=== PATIENT | male | born 1970 | race American Indian/Alaskan Native ===

== ENCOUNTER 2022-12-07 14:21 | Emergency (ER) | payer SELFPAY ==
[2022-12-07 15:09] LABS: Hematocrit 42.1 % (39.6-49.0); Lymphocytes % 18.4 % (15.3-44.8); MPV 8.5 fL (7.6-11.3); RBC Red Blood Cell Count 4.73 M/uL (4.33-5.43)
[2022-12-07] MEDS ORDERED: AMLODIPINE 5 MG TAB ONE (15:19)
[2022-12-07 15:32] LABS: Potassium 3.3 mEq/L (3.5-5.1); Troponin High Sensitivity 15.8 pg/mL (<58.9)
--- NOTE | 2022-12-07 16:29 | RAD REPORT ---
EXAM DESCRIPTION: Raeann Single View12/07/2022 2:58 pm CLINICAL HISTORY: Chest pain COMPARISON: none FINDINGS: The lungs appear clear of acute infiltrate. The heart is mildly enlarged IMPRESSION: No acute abnormalities displayed
--- NOTE | 2022-12-07 16:29 | RAD REPORT ---
EXAM DESCRIPTION: CT - Angio Aorta For Dissection - 12/07/2022 3:45 pm CLINICAL HISTORY: . Chest and abd pain COMPARISON: None TECHNIQUE: Computed tomography angiography of the chest, abdomen pelvis were obtained. 100 cc Isovue 370 was administered intravenously. Coronal and sagittal reconstruction were performed. MIP 3D reconstruction was performed All CT scans are performed using dose optimization technique as appropriate and may include automated exposure control or mA/KV adjustment according to patient size. FINDINGS: An aortic dissection is not seen. An aortic aneurysm is not displayed. The celiac, SMA and QUANG are patent . A lung consolidation is not present. A pericardial effusion is not seen. A pleural effusion is not no darlin. Fatty liver. Bladder is distended. The spleen, pancreas, adrenals and kidneys are unremarkable There no evidence diverticulitis. IMPRESSION: Negative for an aortic dissection.
--- NOTE | 2022-12-07 16:53 | ER ---
Nurse's Notes [facility] Name: Alvaro Cnanon Age: 52 yrs Sex: Male : 1970 Arrival Date: 12/07/2022 Time: 14:21 Bed 17 Private MD: Diagnosis: Chest pain, unspecified;Essential (primary) hypertension Presentation: 12/07 14:20 Chief complaint: EMS states: WEAKNESS, CP, DIFFICULTY BREATHING STARTED 45 MIN AGO. db 14:20 Coronavirus screen: Vaccine status: Patient reports receiving the 2nd dose of the covid db vaccine. Client denies travel out of the [place] in the last 14 days. At this time, the client does not indicate any symptoms associated with coronavirus-19. Ebola Screen: Patient negative for fever greater than or equal to 101.5 degrees Fahrenheit, and additional compatible Ebola Virus Disease symptoms Patient denies exposure to infectious person. Patient denies travel to an Ebola-affected area in the 21 days before illness onset. No symptoms or risks identified at this time. Initial Sepsis Screen: Does the patient meet any 2 criteria? No. Patient's initial sepsis screen is negative. Does the patient have a suspected source of infection? No. Patient's initial sepsis screen is negative. Risk Assessment: Do you want to hurt yourself or someone else? Patient reports no desire to harm self or others. Onset of symptoms was December 07, 2022 at 13:30. Care prior to arrival: Medication(s) given: ASA, 81 mg, x 4, Nitroglycerin, 0.4 mg SL x 1, IV initiated. 20 GA, in the left forearm, Glucose check: 117. 14:20 Method Of Arrival: EMS: [facility] db 14:20 Acuity: DONALD 2 db Triage Assessment: 14:33 General: Appears in no apparent distress. comfortable, Behavior is calm, cooperative. db Pain: Complains of pain in chest Pain radiates to back. Neuro: Level of Consciousness is awake, alert, obeys commands, Oriented to person, place, time, situation, Speech is normal. Cardiovascular: Reports chest pain, shortness of breath, Capillary refill < 3 seconds Patient's skin is warm and dry. Chest pain. Respiratory: Airway is patent Respiratory effort is even, unlabored, Respiratory pattern is regular, symmetrical. Historical: - Allergies: 14:33 No Known Allergies; db - PMHx: 14:33 Hypertensive disorder; db - Immunization history:: Adult Immunizations unknown, Client reports receiving the 2nd dose of the Covid vaccine. - Social history:: Smoking status: Patient denies any tobacco usage or history of. - Family history:: not pertinent. - Hospitalizations: : No recent hospitalization is reported. Screenin:35 [facility] ED Fall Risk Assessment (Adult) History of falling in the last 3 months, db including since admission No falls in past 3 months (0 pts) Confusion or Disorientation No (0 pts) Intoxicated or Sedated No (0 pts) Impaired Gait No (0 pts) Mobility Assist Device Used No (0 pt) Altered Elimination No (0 pt) Score/Fall Risk Level 0 - 2 = Low Risk Oriented to surroundings, Maintained a safe environment. Abuse screen: Denies threats or abuse. Denies injuries from another. Nutritional screening: No deficits noted. Tuberculosis screening: No symptoms or risk factors identified. Assessment: 14:34 Reassessment: SEE TRIAGE FOR INITIAL ASSESSMENT. Pain: Pain began suddenly, 1 hour ago. db 16:30 Reassessment: Patient appears in no apparent distress at this time. Patient and/or db family updated on plan of care and expected duration. Pain level reassessed. Patient is alert, oriented x 3, equal unlabored respirations, skin warm/dry/pink. Patient states feeling better. Patient states symptoms have improved. 17:10 Reassessment: Patient appears in no apparent distress at this time. Patient and/or db family updated on plan of care and expected duration. Pain level reassessed. Patient is alert, oriented x 3, equal unlabored respirations, skin warm/dry/pink. Patient states feeling better. Pain: Complains of pain in chest. Vital Signs: 14:20 BP 149 / 91; Pulse 71; Resp 16; Temp 98.6(O); Pulse Ox 99% on R/A; Weight 72.12 kg; db Height 5 ft. 7 in. ; 14:30 BP 153 / 99; Pulse 73; Resp 16; Pulse Ox 98% on R/A; db 15:00 BP 147 / 89; Pulse 68; Resp 16; Pulse Ox 99% on R/A; db 16:00 BP 154 / 80; Pulse 72; Resp 16; Pulse Ox 99% on R/A; db 17:00 BP 144 / 93; Pulse 78; Resp 16; Pulse Ox 97% on R/A; db 14:20 Body Mass Index 24.90 (72.12 kg, 170.18 cm) db Vitals: 14:30 Cardiac Rhythm Assessment Regular Sinus rhythm. db ED Course: 14:27 Patient arrived in ED. db 14:33 Triage completed. db 14:34 Arm band placed on Patient placed in an exam room. db 14:35 Maintain EMS IV. Dressing intact. Good blood return noted. Site clean \T\ dry. Gauge \T\ db site: 20 G LFA. 14:36 Brett Lugo MD is Attending Physician. rn 15:00 XRAY Chest (1 view) In Process Unspecified. EDMS 15:00 Basic Metabolic Panel Sent. cm10 15:00 CBC with Diff Sent. cm10 15:00 NT PRO-BNP Sent. cm10 15:00 Troponin HS Sent. cm10 15:00 Initial lab(s) drawn, by me, sent to lab. Inserted saline lock: 20 gauge in right cm10 forearm, using aseptic technique. Blood collected. 15:03 Varsha Carreon, RN is Primary Nurse. db 15:46 CT Aorta for Dissection In Process Unspecified. EDMS 16:28 Patient has correct armband on for positive identification. Bed in low position. Call db light in reach. Side rails up X2. Client placed on continuous cardiac and pulse oximetry monitoring. NIBP monitoring applied. 16:28 Repeat lab(s) drawn. by me, sent to lab. db 17:10 Provided Education on: DISCHARGE. db 17:10 No provider procedures requiring assistance completed. IV discontinued, intact, db bleeding controlled, No redness/swelling at site. Patient maintains SpO2 saturation greater than 95% on room air. Administered Medications: 15:12 Drug: amLODIPine PO 5 mg Route: PO; db 17:11 Follow up: Response: No adverse reaction db Medication: 17:10 VIS not applicable for this client. db Outcome: 16:52 Discharge ordered by . rn 17:10 Discharged to home ambulatory, with family. db 17:10 Condition: stable 17:10 Discharge instructions given to patient, Instructed on discharge instructions, follow up and referral plans. 17:11 Patient left the ED. db Signatures: Dispatcher [employer] EDMS Brett Lugo MD MD rn Benton, Danielle, RN RN db Martinez Lori, RN RN cm10
--- NOTE | 2022-12-07 16:53 | EDPHYS ---
Physician Documentation [facility] Name: Alvaro Cannon Age: 52 yrs Sex: Male : 1970 Arrival Date: 12/07/2022 Time: 14:21 Bed 17 Private MD: ED Physician Brett Lugo HPI: 12/07 14:43 This 52 yrs old Male presents to ER via EMS with complaints of Chest Pain. rn 14:43 The patient or guardian reports chest pain that is located primarily in the chest rn diffusely. Onset: just prior to arrival. The pain does not radiate. Associated signs and symptoms: Pertinent positives: dizziness, Pertinent negatives: abdominal pain, shortness of breath, syncope, vomiting. The chest pain is described as a heaviness. Duration: The patient or guardian reports a single episode, that is still ongoing. Modifying factors: The symptoms are alleviated by nothing. the symptoms are aggravated by emotionally stressful situations. Severity of pain: At its worst the pain was moderate in the emergency department the pain has improved. The patient has not experienced similar symptoms in the past. The patient has not recently seen a physician. Pt reports chest heaviness and dizziness, began quickly while talking to his family member, reports was under a lot of stress, now feels better, states got aspirin by EMS but denies getting nitroglycerin. NO famhx of cardiac problems, and multiple family members lived to late 90s age. No trauma. No fever. No cough. NO abd pain. No vomiting. Reports feels much better but still feels a little chest heaviness. . Historical: - Allergies: 14:33 No Known Allergies; db - PMHx: 14:33 Hypertensive disorder; db - Immunization history:: Adult Immunizations unknown, Client reports receiving the 2nd dose of the Covid vaccine. - Social history:: Smoking status: Patient denies any tobacco usage or history of. - Family history:: not pertinent. - Hospitalizations: : No recent hospitalization is reported. ROS: 14:43 Constitutional: Negative for fever, chills, and weight loss, Eyes: Negative for injury, rn pain, redness, and discharge, Neck: Negative for injury, pain, and swelling, Cardiovascular: Negative for edema Respiratory: Negative for shortness of breath, cough, wheezing, and pleuritic chest pain, Abdomen/GI: Negative for abdominal pain, nausea, vomiting, diarrhea, and constipation, MS/Extremity: Negative for injury and deformity, Skin: Negative for injury, rash, and discoloration, Neuro: Negative for headache, weakness, numbness, tingling, and seizure. Exam: 14:43 Constitutional: This is a well developed, well nourished patient who is awake, alert, rn and in no acute distress. Talking on phone, appears comfortable. Head/Face: Normocephalic, atraumatic. Cardiovascular: Regular rate and rhythm. No pulse deficits. Respiratory: No increased work of breathing, no retractions or nasal flaring. Abdomen/GI: Soft, non-tender Skin: Warm, dry with normal turgor. Normal color with no rashes, no lesions, and no evidence of cellulitis. MS/ Extremity: Pulses equal, no cyanosis. Neurovascular intact. Full, normal range of motion. LLE greater circumference greater than RLE (patient states that way since childhood) Neuro: Awake and alert, GCS 15 15:03 ECG was reviewed by the Attending Physician. rn Vital Signs: 14:20 BP 149 / 91; Pulse 71; Resp 16; Temp 98.6(O); Pulse Ox 99% on R/A; Weight 72.12 kg; db Height 5 ft. 7 in. ; 14:30 BP 153 / 99; Pulse 73; Resp 16; Pulse Ox 98% on R/A; db 15:00 BP 147 / 89; Pulse 68; Resp 16; Pulse Ox 99% on R/A; db 16:00 BP 154 / 80; Pulse 72; Resp 16; Pulse Ox 99% on R/A; db 17:00 BP 144 / 93; Pulse 78; Resp 16; Pulse Ox 97% on R/A; db 14:20 Body Mass Index 24.90 (72.12 kg, 170.18 cm) db MDM: 14:36 Patient medically screened. rn 16:50 Differential diagnosis: acute myocardial infarction, anxiety, chest wall pain, rn costochondritis, esophagitis, gastritis, gastroesophageal reflux disease (GERD), pleurisy, pneumonia, pneumothorax, pulmonary embolus, stable angina, thoracic aortic disection. Data reviewed: vital signs, nurses notes, lab test result(s), EKG, radiologic studies, CT scan, plain films, and as a result, I will discharge patient. Care significantly affected by the following chronic conditions: Hypertension. Counseling: I had a detailed discussion with the patient and/or guardian regarding: the historical points, exam findings, and any diagnostic results supporting the discharge/admit diagnosis, the presence of at least one elevated blood pressure reading (>120/80) during this emergency department visit, lab results, radiology results, the need for outpatient follow up, to return to the emergency department if symptoms worsen or persist or if there are any questions or concerns that arise at home. Special discussion: Based on the patient's history, exam, and Dx evaluation, there is no indication for emergent intervention or inpatient Tx. It is understood by the patient/guardian that if the Sx's persist or worsen they need to return immediately for re-evaluation. I discussed with the patient/guardian in detail that at this point there is no indication for admission to the hospital. It is understood, however, that if the symptoms persist or worsen the patient needs to return immediately for re-evaluation. Based on the history and exam findings, there is no indication for further emergent testing or inpatient evaluation. I discussed with the patient/guardian the need to see the etl bi developer for further evaluation of the symptoms. I discussed with the patient/guardian the need to see the primary care provider for further evaluation of the symptoms. 16:50 ED course: Trop neg x 2, CT aorta negative, improved BP, recommend pcp and ostomy rn f/u as well as BP recording for further management by pcp. . 12/07 14:42 Order name: Basic Metabolic Panel; Complete Time: 15:37 rn 12/07 14:42 Order name: CBC with Diff; Complete Time: 15:20 rn 12/07 14:42 Order name: NT PRO-BNP; Complete Time: 15:37 rn 12/07 14:42 Order name: Troponin HS; Complete Time: 15:37 rn 12/07 14:42 Order name: D-Dimer; Complete Time: 15:37 rn 12/07 15:57 Order name: Troponin High Sensitivity: repeat; Complete Time: 16:50 rn 12/07 14:42 Order name: XRAY Chest (1 view); Complete Time: 16:40 rn 12/07 15:01 Order name: CT Aorta for Dissection; Complete Time: 16:40 rn 12/07 14:42 Order name: EKG; Complete Time: 14:44 rn 12/07 14:42 Order name: Cardiac monitoring; Complete Time: 15:03 rn 12/07 14:42 Order name: EKG - Nurse/Tech; Complete Time: 15:03 rn 12/07 14:42 Order name: IV Saline Lock; Complete Time: 15:00 rn 12/07 14:42 Order name: Labs collected and sent; Complete Time: 15:00 rn 12/07 14:42 Order name: O2 Per Protocol; Complete Time: 15:03 rn 12/07 14:42 Order name: O2 Sat Monitoring; Complete Time: 15:03 rn EC:03 Rate is 68 beats/min. Rhythm is regular. QRS [place] is Normal. GA interval is normal. QRS rn interval is normal. QT interval is normal. No Q waves. T waves are Normal. No ST changes noted. Clinical impression: Normal ECG. Interpreted by me. Reviewed by me. Administered Medications: 15:12 Drug: amLODIPine PO 5 mg Route: PO; db 17:11 Follow up: Response: No adverse reaction db Disposition Summary: 12/07/22 16:52 Discharge Ordered Location: Home rn Problem: new rn Symptoms: have improved rn Condition: Stable rn Diagnosis - Chest pain, unspecified rn - Essential (primary) hypertension rn Followup: rn - With: Private Physician - When: As needed - Reason: Recheck today's complaints, Re-evaluation by your physician Discharge Instructions: - Discharge Summary Sheet rn - Nonspecific Chest Pain, Adult rn - Hypertension, Adult rn - How to Take Your Blood Pressure, [id number] rn - Managing Your Hypertension rn Forms: - Medication Reconciliation Form rn - Thank You Letter rn - Antibiotic rn imcu - Prescription Opioid Use rn - Patient Portal Instructions rn Signatures: Dispatcher [employer] Brett Lepe MD MD rn Benton, Danielle, RN RN db
[2022-12-07 17:24] VITALS: BP 144/93; O2SAT 97
--- NOTE | 2022-12-08 17:35 | EKG ---
Test Date: 2022-12-07 Test Time: 14:49:12 Gripper Attacher: TATIANA MEASUREMENT RESULTS: Intervals: Rate: 68 MA: 158 QRSD: 82 QT: 400 QTc: 425 [place]: P: 47 MA: 158 QRS: 11 T: 32 INTERPRETIVE STATEMENTS: Normal sinus rhythm Normal ECG Compared to ECG 12/07/2022 14:48:55 No significant changes Electronically Signed On 12-08-22 17:31:56 CDT by Alejandro Marin
--- NOTE | 2022-12-08 17:35 | EKG ---
Test Date: 2022-12-07 Test Time: 14:48:55 Cutter Operator Helper: TATIANA MEASUREMENT RESULTS: Intervals: Rate: 72 MT: 158 QRSD: 76 QT: 388 QTc: 424 [place]: P: 48 MT: 158 QRS: 9 T: -4 INTERPRETIVE STATEMENTS: Normal sinus rhythm Normal ECG No previous ECG available for comparison Electronically Signed On 12-08-22 17:31:58 CDT by Alejandro Marin
== END 2022-12-07 17:11 | disposition home or self-care (01) ==
LOC: ER 14:21
DX: R07.9 Chest pain, unspecified (principal); I10 Essential (primary) hypertension
CPT/HCPCS: 36415; 71045; 71275; 74175; 80048; 83880; 84484; 85025; 85379; 93005; Q9967